=== PATIENT | male | born 1960 | race Caucasian/White ===

== ENCOUNTER 2021-02-11 06:37 | Outpatient (CLI) | payer OTHER ==
[2021-02-11 19:28] LABS: SARS-CoV-2 PCR by NAA Not Detected (NotDetected)
== END 2021-02-11 06:38 | disposition home or self-care (01) ==
LOC: LABBT 06:37
PROVIDERS: ATTEND Otolaryngology Otology & Neurotology
DX: Z01.818 Encounter for other preprocedural examination (principal); H90.6 Mixed conductive and sensorineural hearing loss, bilateral; H72.93 Unspecified perforation of tympanic membrane, bilateral; H71.90 Unspecified cholesteatoma, unspecified ear; Z20.822 Contact with and (suspected) exposure to COVID-19
CPT/HCPCS: 93005; 93010; U0003; U0005

== ENCOUNTER 2021-02-16 06:46 | Day surgery (SDC) | payer OTHER ==
[2021-02-13 10:57] VITALS: BMI 30.9
[2021-02-16] MEDS ORDERED: Bupivacaine 0.25% HCL 30 ML VIAL ONE (10:04)
[2021-02-16] MEDS ORDERED: NEOMYCIN-POLYMYXIN-HC EAR SUSP 200 DROP/10 ML BOT ONE (10:04)
[2021-02-16] MEDS ORDERED: Lidocaine 1% w/Epinephrine 1:100K 20 ML VIAL ONE (10:04)
[2021-02-16] MEDS ORDERED: Bacitracin Zinc Ointment 30 gm TUBE ONE (10:04)
[2021-02-16] MEDS ORDERED: Neomycin-Polymyxin 1 ML AMP ONE (10:04)
[2021-02-16] MEDS ORDERED: EPINEPHrine 1 MG/ML AMP ONE (10:04)
[2021-02-16] MEDS ORDERED: Fentanyl 100 MCG/2 ML VIAL ONE ×2 (10:36)
[2021-02-16] MEDS ORDERED: PHENYLEPHRINE-NS 100 MCG/ML 10 ML SYRINGE ONE ×2 (10:36→10:54)
[2021-02-16] MEDS ORDERED: Dexamethasone 20 MG/5 ML VIAL ONE (10:54)
[2021-02-16] MEDS ORDERED: ePHEDrine 50 MG/ML VIAL ONE (10:54)
[2021-02-16] MEDS ORDERED: PROPOFOL 200 MG/20 ML VIAL ONE (10:54)
[2021-02-16] MEDS ORDERED: Ondansetron PF 4 MG/2 ML Vial ONE (10:54)
[2021-02-16] MEDS ORDERED: Lidocaine 1% PF 5 ML VIAL ONE (10:54)
[2021-02-16] MEDS ORDERED: Succinylcholine 200 MG/10 ml SYRINGE FS ONE (10:54)
[2021-02-16] MEDS ORDERED: HYDROcodone/Acetaminophen 5/325 mg Tablet ONE (15:38)
== END 2021-02-16 16:05 | disposition home or self-care (01) ==
LOC: SDC 06:46
PROVIDERS: ATTEND Otolaryngology Otology & Neurotology
PROC: 0NB50ZZ Excision of Right Temporal Bone, Open Approach (ICD-10-PCS; principal; 2021-02-16)
DX: H71.91 Unspecified cholesteatoma, right ear (principal); H72.93 Unspecified perforation of tympanic membrane, bilateral; H90.6 Mixed conductive and sensorineural hearing loss, bilateral; I10 Essential (primary) hypertension; M19.90 Unspecified osteoarthritis, unspecified site; F17.290 Nicotine dependence, other tobacco product, uncomplicated; J30.2 Other seasonal allergic rhinitis; E66.9 Obesity, unspecified; Z68.31 Body mass index [BMI] 31.0-31.9, adult; Z79.1 Long term (current) use of non-steroidal anti-inflammatories (NSAID); Z79.899 Other long term (current) drug therapy; Z88.8 Allergy status to other drugs, medicaments and biological substances
CPT/HCPCS: 88304; J0171; J1100; J2405; J2704; J3010; J3490; J7620; S0020